=== PATIENT | male | born 1980 | race Caucasian/White ===

== ENCOUNTER 2024-11-05 12:17 | Emergency (ER) | payer BC ==
[~2024-11-05] VITALS: Ht 175.3 cm; Wt 85.0 kg
[2024-11-05 12:20] VITALS: O2SAT 99
[2024-11-05] MEDS: BACITRACIN ZINC OINT UDPKT TOP ONE (13:15)
[2024-11-05] MEDS: LIDOCAINE HCL/PF 1% 10 MG/ML 5ML VIAL INFIL ONE (13:15)
[2024-11-05] MEDS: ACETAMINOPHEN 325MG TABLET PO ONE (13:34)
[2024-11-05] MEDS: TETANUS, DIPHTHERIA, PERTUSSIS VAC/PF 0.5ML (>10YR OLD) IM ONE (13:57)
[2024-11-05] MEDS ORDERED: BO1 TP (14:59)
[2024-11-05] MEDS ORDERED: ACET-2708 MT (14:59)
[2024-11-05 15:26] VITALS: BP 124/82; PULSE 68; RESP 18; TEMP 36.8; O2SAT 98
== END 2024-11-05 15:27 | disposition home or self-care (01) ==
LOC: ER 12:17
DX: S51.812A Laceration without foreign body of left forearm, initial encounter (principal); Z79.899 Other long term (current) drug therapy; W26.0XXA Contact with knife, initial encounter; Y92.89 Other specified places as the place of occurrence of the external cause; Y93.89 Activity, other specified; Y99.0 Civilian activity done for income or pay
CPT/HCPCS: 90715; 12002; 90471; 99283; J2003; Z7610 ×2